=== PATIENT | female | born 1980 | race Caucasian/White ===

== ENCOUNTER 2019-12-08 05:31 | Inpatient (IN) | payer OTHER ==
[~2019-12-08] VITALS: Ht 167.6 cm; Wt 76.8 kg
[2019-12-08] VITALS (17 sets, daily range): BP systolic 117–177; BP diastolic 72–105
[2019-12-08 06:16] LABS: HEMATOCRIT 39.3 % (37.0-47.0); MCH 33.3 pg (26.0-34.0); MCHC 35.5 g/dL (28.0-37.0); MCV 93.7 fL (80.0-100.0); NUCLEATED RBCS 0 /100WBC; PLATELET COUNT* 190 thou/uL (150-400); RBC 4.19 mil/uL (4.20-5.00); WBC 14.5 thou/uL (4.0-11.0)
[2019-12-08 06:26] LABS: ANION GAP 22 mmol/L (7-16); BUN 11 mg/dL (7-18); CALCIUM 7.9 mg/dL (8.5-10.1); CHLORIDE 88 mmol/L (98-107); CO2 19 mmol/L (21-32); GLUCOSE 214 mg/dL (70-99); SODIUM 129 mmol/L (136-145)
[2019-12-08 06:27] LABS: INR 1.3; PROTIME 12.9 Seconds (9.20-11.50)
[2019-12-08 06:31] LABS: BE -3.7 mmol/L (-2 to +3); PCO2 24.2 mmHg (35.0-45.0); pH 7.485 (7.340-7.450)
[2019-12-08 06:34] LABS: PO2 135.3 mmHg (75.0-100.0)
[2019-12-08 06:36] LABS: ALKALINE PHOSPHATASE 74 U/L (46-116); MAGNESIUM 1.7 mg/dL (1.8-2.4); NT-PRO BRAIN NAT PEPTIDE 137 pg/mL (<300); SGOT 134 U/L (15-37); SGPT 32 U/L (30-65); TOTAL BILIRUBIN 0.7 mg/dL (<0.1-1.0); TOTAL PROTEIN 6.5 g/dL (6.4-8.2)
[2019-12-08 06:44] LABS: AMMONIA < 10 umol/L (11-32)
[2019-12-08 06:54] LABS: LIPASE 5612 U/L (73-393)
[2019-12-08 07:02] LABS: ABSOLUTE LYMPHOCYTES 0.7 thou/uL (0.8-5.3); ABSOLUTE NEUTROPHILS 13.8 thou/uL (1.6-8.1); PLATELET ESTIMATE ADEQUATE
[2019-12-08 07:51] LABS: URINE BILIRUBIN NEGATIVE (Negative); URINE BLOOD 1+ (Negative); URINE CLARITY CLEAR; URINE COLOR YELLOW; URINE GLUCOSE-RANDOM NEGATIVE (Negative); URINE KETONES 2+ (Negative); URINE LEUKOCYTES-REFLEX NEGATIVE (Negative); URINE NITRITE-REFLEX NEGATIVE (Negative); URINE PROTEIN 1+ (Negative); URINE SPECIFIC GRAVITY >= 1.030 (1.005-1.030); URINE UROBILINOGEN 0.2 E.U./dl (0.2-1.0)
[2019-12-08 08:00] LABS: BACTERIA-REFLEX 1-9 Few /HPF (None Seen); SQUAMOUS 0-3 Few /LPF (0-3); URINE RBC 3-10 Few /HPF (0-2); URINE WBC-REFLEX 0-5 Rare /HPF (0-5)
[2019-12-08 08:01] LABS: CASTS None Seen /LPF (None Seen); CRYSTALS None Seen /LPF (None Seen); MUCUS 0-3 Light strn/LPF (None Seen)
--- NOTE | 2019-12-08 10:26 | EKG ---
[place] [address] ELECTROCARDIOGRAM REPORT Name: DECLAN AYALA Room: [address] ADM IN M.R.#: [id number] Admission: 12/08/19 Attend Phys: Thang maxwell Sa Discharge: Date of : 80 Date of Service: 12/08/19 0536 Report #: [id number] THIS REPORT FOR: //name// [place] [facility] Test Date: 2019-12-08 Test Time: 05:36:49 Pat Name: DECLAN AYALA Department: Room: [facility] Gender: F Engineer First Assistant: [place] : 1980 Requested By: Allison Peña Order Number: [id number] MD: Bandar Kemp Measurements Intervals [place] Rate: 153 P: 64 OR: 196 QRS: 79 QRSD: 152 T: 77 QT: 347 QTc: 554 Interpretive Statements Sinus tachycardia Nonspecific intraventricular conduction delay Artifact in lead(s) I,II,aVR,aVL,aVF,V1,V2,V5,V6 No previous ECG available for comparison Electronically Signed On 12-08-2019 10:25:06 CDT by Bandar Kemp [email or web address] <ELECTRONICALLY SIGNED> By: Bandar Kemp MD, [facility] 12/08/19 1025 0536 0536 Bandar Kemp MD, [facility] /EPI
--- NOTE | 2019-12-08 15:00 | NUR ---
PT.ADMITTED TO ICU TODAY. PER NURSING HAS BEEN JUST DRINKING WHISKEY PAST SEVERAL DAYS WITH OUT EATING FOOD OR DRINKING WATER. LIVES WITH S.O. ATTEMPTED TO CALL MOTHER AT [phone]. NO ANSWER.
--- NOTE | 2019-12-08 18:00 | NUR ---
PT IS ALERT AND ORIENTED X 3 BUT FORGETFUL AT TIMES.NOW ON ROOM AIR WITH O2 SAT 97%.CIWA PROTOCOL IN PLACE.COVID ISOLATION MAINTAINED UNTIL RESULTS.REPLACED POTASSIUM AND MAGNESIUM.PT HAD SEVERAL DIARRHEA EPISODES THROUGHTOUT THE SHIFT-CDIFF PENDING.LOW GRADE FEVER THROUGHOUT THE SHIFT.FALL PRECAUTIONS AND CALL LIGHTS IN PLACE.WILL CONTINUE TO MONITOR FOR DURATION OF SHIFT.
[2019-12-08 22:09] LABS: CALCIUM 6.9 mg/dL (8.5-10.1); CREATININE 0.8 mg/dL (0.6-1.3)
[2019-12-08 22:10] LABS: POTASSIUM 2.1 mmol/L (3.5-5.1)
[2019-12-09] VITALS (18 sets, daily range): BP systolic 115–151; BP diastolic 74–100
[2019-12-09 05:19] LABS: ABSOLUTE EOSINOPHILS 0.1 thou/uL (0.0-0.7); ABSOLUTE LYMPHOCYTES 1.6 thou/uL (0.8-5.3); ABSOLUTE MONOCYTES 0.2 thou/uL (0.0-1.2); ABSOLUTE NEUTROPHILS 4.2 thou/uL (1.6-8.1); BASOPHILS 0.6 %; EOSINOPHILS 1.4 %; HEMATOCRIT 33.8 % (37.0-47.0); HEMOGLOBIN 12.1 gm/dL (12.0-15.0); LYMPHOCYTES 25.5 %; MCH 33.8 pg (26.0-34.0); MCHC 35.6 g/dL (28.0-37.0); MCV 94.8 fL (80.0-100.0); MONOCYTES 3.5 %; MPV 9.4 fl. (7.2-11.1); NUCLEATED RBCS 0 /100WBC; RBC 3.57 mil/uL (4.20-5.00); RDW-CV 14.1 % (10.5-14.5); WBC 6.1 thou/uL (4.0-11.0)
[2019-12-09 05:40] LABS: ALBUMIN 2.4 g/dL (3.4-5.0); CALCIUM 7.1 mg/dL (8.5-10.1); CREATININE 0.7 mg/dL (0.6-1.3); TOTAL PROTEIN 5.6 g/dL (6.4-8.2)
[2019-12-09 06:01] LABS: POTASSIUM 2.6 mmol/L (3.5-5.1)
[2019-12-09 06:02] LABS: PLATELET COUNT* 105 thou/uL (150-400)
--- NOTE | 2019-12-09 09:00 | NUR ---
RECEIVED REPORT AND ASSUMED CARE AT 1900. VSS. ICU MONITORING IN PLACE. PT REPORTS PAIN. PHYSICIAN NOTIFIED, PRN MEDICATION PER ORDERS. PT CIWA 4 THROUGH SHIFT. ROUNDING COMPLETED AND ALL NEEDS MET.
[2019-12-09 18:32] LABS: CALCIUM 7.5 mg/dL (8.5-10.1); CREATININE 0.8 mg/dL (0.6-1.3)
--- NOTE | 2019-12-09 19:00 | NUR ---
PT PROGRESSED TOWARD GOALS STATED SHE FELT BETTER TODAY CIWA 5 C/O BACK PAIN THROUGHOUT DAY PAIN MEDICATION GIVEN POTASSIUM REPLACED CHECKED AT 1700 3.0 1 OF 4 PO DOSES STARTED AGAIN PT COVID TEST CAME BACK NOT DECTECTED
[2019-12-10] VITALS (12 sets, daily range): BP systolic 104–137; BP diastolic 74–95
--- NOTE | 2019-12-10 01:14 | NUR ---
RECEIVED REPORT AND ASSUMED CARE OF PATIENT AT 1900. VSS. FULL ASSESSMENT COMPLETED CHARTED. BED IN LOW POSITION AND LOCKED. CALL LIGHT AND PERSONAL ITEMS IN REACH.
[2019-12-10 06:23] LABS: ALBUMIN 2.9 g/dL (3.4-5.0); CREATININE 0.8 mg/dL (0.6-1.3); MAGNESIUM 1.8 mg/dL (1.8-2.4); POTASSIUM 3.3 mmol/L (3.5-5.1); TOTAL BILIRUBIN 0.6 mg/dL (<0.1-1.0); TOTAL PROTEIN 6.8 g/dL (6.4-8.2)
--- NOTE | 2019-12-10 09:32 | NUR ---
PT TRANSFERED TO ROOM 214 ALL BELONGING PACKED AND SENT WITH PT VIA WHEELCHAIR WITH NURSING STAFF
--- NOTE | 2019-12-10 11:21 | NUR ---
PT ADMITTED ON TELE FLOOR FROM ICU. PT IS AOX4. NO COMPLAINT. VSS. TRACING SINUS TACHY ON INTERNAL AUDIT MANAGER. HEART RATE IN THE 130. PT IS ASYMPTOMATIC. PT AMBULATED TO RESTROOM UP AAD MADHU. PT RECEIVED A BED BATH. IV FLUID REESTARTED ORDERED. ACCUCHECK. NO COMPLAINT OF PAIN. K REPLACED. PT HEART RATE NOW DOWN TO 115. CALL LIGHT WITHIN REACH. WILL CONTINUE TO MONITOR
[2019-12-11] VITALS: BP 135/94
[2019-12-11 04:00] VITALS: BP 146/97
[2019-12-11 04:49] LABS: HEMATOCRIT 33.1 % (37.0-47.0); HEMOGLOBIN 11.5 gm/dL (12.0-15.0); MCH 33.3 pg (26.0-34.0); MCHC 34.8 g/dL (28.0-37.0); MCV 95.6 fL (80.0-100.0); MPV 8.5 fl. (7.2-11.1); NUCLEATED RBCS 0 /100WBC; PLATELET COUNT* 112 thou/uL (150-400); RBC 3.46 mil/uL (4.20-5.00); RDW-CV 14.5 % (10.5-14.5); WBC 4.6 thou/uL (4.0-11.0)
[2019-12-11 05:00] LABS: CALCIUM 7.7 mg/dL (8.5-10.1); CREATININE 0.7 mg/dL (0.6-1.3); POTASSIUM 3.2 mmol/L (3.5-5.1)
--- NOTE | 2019-12-11 05:00 | NUR ---
ASSESSMENTS COMPLETED AT BEDSIDE, PLEASE REFER TO CHARTING FOR DETAILS. MEDICATIONS ADMINISTERED PER MAR. PT HAS BEEN HAVING INCREASED ANXIETY THROUGH OUT THE SHIFT REQUIRING PRN MEDCAITION. PT HAS BEEN VERY TEARFUL. PT STATED SHE DIDNT WANT TO KEEP DOING THIS AND THINKS SH NEEDS TO GO TO REHAB. PT HAS HAD NO SLEEP THIS SHIFT D/T ANXIETY. EDUCATED ON GROUNDING TECHNIQUES, DEEP BREATHING AND WRITING EXERCISES TO HELP WITH ANXIETY. HOURLY ROUNDING COMPLETED FOR SAFETY, CALL LIGHT WITHIN REACH.
[2019-12-11 05:55] LABS: ABSOLUTE EOSINOPHILS 0.6 thou/uL (0.0-0.7); ABSOLUTE LYMPHOCYTES 1.7 thou/uL (0.8-5.3); ABSOLUTE NEUTROPHILS 2.3 thou/uL (1.6-8.1); PLATELET ESTIMATE DECREASED
[2019-12-11 05:56] LABS: ANISOCYTOSIS 1+; POIKILOCYTOSIS 1+; POLYCHROMASIA 1+
[2019-12-11 08:00] VITALS: BP 152/104
[2019-12-11 12:09] VITALS: BP 132/89
--- NOTE | 2019-12-11 16:06 | NUR ---
CM INFORMED BY PHYSICIAN OF PT'S REQUEST FOR ALCOHOL TREATMENT INFO. CM FAXED RN IN-CHARGE OF PT SUBSTANCE AND ALCOHOL ABUSE INFO, AND COMM[facility] AND COMMUNITY CLIN[facility] INFO. RN TO GIVE PT INFO PACKET. PHYSICIAN INFORMS THAT PT MAY BE READY TO D/C TOMORROW. CM WILL REMAIN AVAILABLE TO ASSIST AND FOLLOW NEEDED.
[2019-12-11 16:50] VITALS: BP 148/92
--- NOTE | 2019-12-11 16:50 | NUR ---
ASSUMED PT CARE REPORT RECEIVED FROM NURSE. PT IS AOX4. ON RA. VSS. TRAING ST ON CASE MANAGEMENT DIRECTOR. MEDICINE GIVEN ORDERED. CIWA 9 THIS AM . ATIVAN GIVEN . SEE EMAR. PT AMBULATED IN HALLWAY WITH STAND BY ASSISTANCE. TOLORATED WALKING WELL. COMPLAINS OF ANXIETY AND TREMORS. DENIES NAUSEA. PANCREATIC ENZYMES REPLACED ORDERED. POTASSIUM REPLACED. CALL LIGHT AT REACH. WILL CONTINUE TO MONITOR.
[2019-12-11 20:00] VITALS: BP 150/94
[2019-12-12] VITALS: BP 141/99
[2019-12-12 04:00] VITALS: BP 137/101
--- NOTE | 2019-12-12 05:50 | NUR ---
ASSESSMENTS COMPLETED AT BEDSIDE, PLEASE REFER TO CHARTING FOR DETAILS. MEDICATIONS ADMINISTERED PER MAR. HOURLY ROUNDING COMPLETED FOR SAFETY. C/O ANXIETY TREATED WITH PRN MEDICATION. PT SHOWING IMPROVEMENT FROM PRIOR HS SHIFT. HOURLY ROUNDING COMPLETED FOR SAFETY. CALL LIGHT WITHIN REACH.
[2019-12-12 07:51] LABS: ABSOLUTE EOSINOPHILS 0.4 thou/uL (0.0-0.7); ABSOLUTE LYMPHOCYTES 1.5 thou/uL (0.8-5.3); ABSOLUTE MONOCYTES 0.5 thou/uL (0.0-1.2); ABSOLUTE NEUTROPHILS 1.8 thou/uL (1.6-8.1); BASOPHILS 0.8 %; EOSINOPHILS 8.6 %; HEMATOCRIT 30.6 % (37.0-47.0); HEMOGLOBIN 10.9 gm/dL (12.0-15.0); LYMPHOCYTES 36.5 %; MCH 34.2 pg (26.0-34.0); MCHC 35.6 g/dL (28.0-37.0); MCV 96.2 fL (80.0-100.0); MONOCYTES 11.8 %; MPV 8.4 fl. (7.2-11.1); NUCLEATED RBCS 0 /100WBC; PLATELET COUNT* 136 thou/uL (150-400); POLYS 42.3 %; RBC 3.19 mil/uL (4.20-5.00); RDW-CV 14.5 % (10.5-14.5); WBC 4.2 thou/uL (4.0-11.0)
[2019-12-12 08:01] LABS: ALBUMIN 2.5 g/dL (3.4-5.0); CREATININE 0.6 mg/dL (0.6-1.3); POTASSIUM 3.6 mmol/L (3.5-5.1); TOTAL BILIRUBIN 0.3 mg/dL (<0.1-1.0)
[2019-12-12 11:50] VITALS: BP 124/79
--- NOTE | 2019-12-12 12:57 | NUR ---
Per , anticipate dc to home tomorrow. Community resources provided to Pt yesterday.
--- NOTE | 2019-12-12 14:34 | NUR ---
Nutrition: Pt seen for nursing risk 2 points. Pt stated she hasn't been eating like usual d/t just not feeling well for about a week. No wt changes. She stated her usual wt is ~160#, RD weighed pt in bed at a bed wt of 173#. Heart Healthy diet. Pt was eating lunch fairly well during visit. She refused any oral supplements and denied a concerns for any appetite loss at this time. Admitted for alcoholic panc - improving, colitis - improving. Labs: elevated lipase, alb 2.5, prealb 36.7. No nutrition interventions at this time. Mild nutrition risk d/t lifestyle. Will follow po intake, labs, nutrition concerns. F/u 12/17/19.
[2019-12-12 16:50] VITALS: BP 137/93
[2019-12-12 20:10] VITALS: BP 130/85
[2019-12-13] VITALS: BP 143/99
[2019-12-13 03:54] VITALS: BP 149/96
--- NOTE | 2019-12-13 04:27 | NUR ---
ASSUMED CARE AT 1910H, ON RA AND TOLERATED.PRN MEDS FOR ANXIETY,TREMORS AND NECK PAIN GIVEN. NO DISTRESS AND RESPIRATORY DISTRESS. CONTINUE MONITORING AND TOWARD GOALS.
[2019-12-13 12:49] VITALS: BP 142/87
[2019-12-13] MEDS ORDERED: CARDIZEM CD240 M1 PO (15:01)
[2019-12-13] MEDS ORDERED: PROTONIX40 M2 PO (15:02)
[2019-12-13] MEDS ORDERED: VITAMIN B-1100 M2 PO (15:03)
[2019-12-13] MEDS ORDERED: FOLIC ACID1 MG PO (15:07)
[2019-12-13 15:12] VITALS: BP 142/87
[2019-12-13] MEDS ORDERED: PNV 29-1 TABLE1 EACH PO (15:12)
--- NOTE | 2019-12-13 17:15 | NUR ---
ASSUMED PT CARE AT 0700, PT A&O X4, VSS, RA, CTO TRACING SINUS TACH/SINUS RHYTHM, UP WITH STAND BY ASSIST TO BATHROOM. PT DISCHARGED HOME AT APPROX 1700 WITH PARENTS. EDUCATED ON ALL DISCHARGE INSTRUCTIONS INCLUDING MEDICATIONS AND FOLLOW UP APPOINTMENTS. IV AND CTO REMOVED, HOURLY ROUNDING COMPLETED.
== END 2019-12-13 17:00 | disposition home or self-care (01) | DRG 439 ==
LOC: M.ERS 05:31 → M.2W 06:37 → M.TBA-ER 06:37 → M.ICU 06:37 → M.2W 12-10 09:30
PROVIDERS: Emergency Medicine; Internal Medicine; ADMIT Family Medicine
DX: K85.20 Alcohol induced acute pancreatitis without necrosis or infection (principal); F10.230 Alcohol dependence with withdrawal, uncomplicated; E87.1 Hypo-osmolality and hyponatremia; E87.2 Acidosis; E87.3 Alkalosis; K55.9 Vascular disorder of intestine, unspecified; E87.6 Hypokalemia; F32.9 Major depressive disorder, single episode, unspecified; F41.9 Anxiety disorder, unspecified; E86.0 Dehydration; Z20.828 Contact with and (suspected) exposure to other viral communicable diseases; Z79.899 Other long term (current) drug therapy